=== PATIENT | female | born 1990 | race American Indian/Alaskan Native ===

== ENCOUNTER 2021-10-08 12:11 | Emergency (ER) | payer SELFPAY ==
[2021-10-08] MEDS ORDERED: PARoxetine 20 MG TAB PO ONE (15:35)
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
[2021-10-08 16:39] VITALS: BP 122/78
== END 2021-10-08 17:33 | disposition home or self-care (01) ==
LOC: ED 12:11
DX: F41.9 Anxiety disorder, unspecified (principal); Z76.0 Encounter for issue of repeat prescription; F41.0 Panic disorder [episodic paroxysmal anxiety]
CPT/HCPCS: 99282